=== PATIENT | male | born 1965 | race Caucasian/White ===

== ENCOUNTER 2019-11-22 13:22 | Emergency (ER) | payer OTHER ==
[~2019-11-22] VITALS: Ht 177.8 cm; Wt 95.3 kg
[~2019-11-22 13:22] MED LIST: ALLEGRA ALLERG180 MG PO; GILTUSS TR TAB1 EACH PO; TESSALON PERLE100 MG PO
== END 2019-11-22 19:16 | disposition home or self-care (01) ==
LOC: ER 13:22
DX: R42 Dizziness and giddiness (principal); Z03.818 Encounter for observation for suspected exposure to other biological agents ruled out

== ENCOUNTER 2019-12-18 15:08 | Outpatient (CLI) | payer OTHER ==
[~2019-12-18] VITALS: Ht 177.8 cm; Wt 95.3 kg
== END 2019-12-18 16:49 | disposition home or self-care (01) ==
LOC: OFIC 805 15:08
PROVIDERS: ATTEND Otolaryngology
DX: H81.13 Benign paroxysmal vertigo, bilateral (principal)